=== PATIENT | female | born 1950 | race African-American/Black ===

== ENCOUNTER 2022-11-22 10:06 | Emergency (ER) | payer MEDICARE, MEDICAID ==
[~2022-11-22] VITALS: Ht 152.4 cm; Wt 63.0 kg
[2022-11-22 10:13] VITALS: BP 155/80
[2022-11-22] MEDS ORDERED: BENZ100C86 MT (11:04)
== END 2022-11-22 11:18 | disposition home or self-care (01) ==
LOC: ER 10:10
DX: R05.9 Cough, unspecified (principal); R09.81 Nasal congestion; M79.10 Myalgia, unspecified site; Z85.9 Personal history of malignant neoplasm, unspecified
CPT/HCPCS: 71045; 99283